=== PATIENT | female | born 1985 | race Caucasian/White ===

== ENCOUNTER 2023-06-01 10:25 | Emergency (ER) | payer MEDICAID ==
[~2023-06-01] VITALS: Ht 172.7 cm; Wt 113.4 kg
[2023-06-01] MEDS: MAG HYDROX/AL HYDROX/SIMETH 30 ML UDC PO ONE (11:48)
[2023-06-01] MEDS: LIDOCAINE VISCOUS 2% UD 15 ML UDC MM ONE (11:50)
[2023-06-01] MEDS ORDERED: PANTOPRAZOLE 40 MG VIAL ONE (11:52)
[2023-06-01] MEDS ORDERED: ONDANSETRON HCL/PF 4 MG/2 ML VIAL ONE (11:52)
[2023-06-01] MEDS ORDERED: MAG HYDROX/AL HYDROX/SIMETH 30 ML UDC ONE (11:53)
[2023-06-01] MEDS ORDERED: LIDOCAINE VISCOUS 2% UD 15 ML UDC ONE (11:53)
[2023-06-01 12:01] LABS: BASOPHILS # (AUTO) 0.1 K/uL (0.0-0.2); BASOPHILS % (AUTO) 0.9 % (0.0-2.0); EOSINOPHILS # (AUTO) 0.3 K/uL (0.0-0.7); EOSINOPHILS % (AUTO) 3.4 % (0.0-6.0); HEMATOCRIT 38 % (33-45); HEMOGLOBIN 12.5 g/dL (11.5-14.8); LYMPHOCYTES % (AUTO) 23.9 % (20.0-44.0); MEAN CORPUSCULAR HEMOGLOBIN 31 PG (26.0-33.0); MEAN CORPUSCULAR HGB CONC 33 g/dl (31.0-36.0); MEAN CORPUSCULAR VOLUME 94 fL (82-100); MONOCYTES # (AUTO) 0.6 K/uL (0.1-1.30); MONOCYTES % (AUTO) 6.5 % (2.0-12.0); NEUTROPHILS # (AUTO) 5.5 K/uL (1.8-8.9); NEUTROPHILS % (AUTO) 65.3 % (43.0-81.0); PLATELET COUNT (AUTO) 359 K/uL (150-450); RED BLOOD CELL COUNT(AUTO) 4.01 MIL/uL (4.0-5.2); RED CELL DISTRIBUTION WIDTH 14.7 % (11.5-15.0); WHITE BLOOD COUNT (AUTO) 8.5 K/uL (4.3-11.0)
[2023-06-01] MEDS: ONDANSETRON HCL/PF 4 MG/2 ML VIAL IVP ONE (12:01)
[2023-06-01] MEDS: PANTOPRAZOLE 40 MG VIAL IV ONE (12:05)
[2023-06-01 12:07] LABS: APPEARANCE,URINE CLEAR (CLEAR); BILIRUBIN,URINE NEGATIVE (NEGATIVE); BLOOD, URINE NEGATIVE Ery/uL (NEGATIVE); COLOR,URINE YELLOW (YELLOW); KETONES,URINE NEGATIVE (NEGATIVE); LEUKOCYTE ESTERASE ,URINE NEGATIVE (NEGATIVE); NITRITE, URINE NEGATIVE (NEGATIVE); PH,URINE 5.5 (5.0-8.0); PROTEIN,URINE NEGATIVE (NEGATIVE); UGLUCOSE NEGATIVE (NEGATIVE); UROBILINOGEN,URINE 0.2 EU/dL (0.2)
[2023-06-01 12:07] LABS: CALCIUM, SERUM 9.1 mg/dL (8.5-10.1); CARBON DIOXIDE 28 mmol/L (21-32); CHLORIDE 101 mmol/L (98-107); CREATININE 0.6 mg/dL (0.6-1.3); GLUCOSE 88 mg/dL (74-106); POTASSIUM 3.6 mmol/L (3.5-5.1); SODIUM SERUM 139 mmol/L (136-145); UREA NITROGEN, BLOOD 13 mg/dL (7-18)
[2023-06-01 12:09] LABS: PREGNANCY TEST URINE QUAL NEGATIVE (NEGATIVE)
[2023-06-01] MEDS: IV NS 0.9% 1,000 ML BAG IV ONE (12:10)
[2023-06-01 12:21] LABS: ALANINE AMINOTRANSFERASE 90 U/L (12-78); ALBUMIN 3.4 g/dL (3.4-5.0); ALKALINE PHOSPHATASE 91 U/L (46-116); ASPARTATE AMINOTRANSFERASE 67 U/L (15-37); BILIRUBIN,DIRECT 0.1 mg/dL (0.0-0.2); BILIRUBIN,TOTAL 0.2 mg/dL (0.2-1.0); LIPASE 29 U/L (16-77); TOTAL PROTEIN, SERUM 7.3 g/dL (6.4-8.2)
[2023-06-01] MEDS ORDERED: CT SWABBABLE VALVE TRANS SET 1 EA INFUS.SET MC ONE (12:25)
[2023-06-01] MEDS ORDERED: IOHEXOL-350 100 ML VIAL IV ONE (12:25)
[2023-06-01] MEDS ORDERED: IV NS 0.9% 250 ML IV ONE (12:26)
[2023-06-01] MEDS ORDERED: FAMO-131 PO (14:00)
[2023-06-01] MEDS ORDERED: ONDA4TAB5 PO (14:00)
[2023-06-01] MEDS ORDERED: LIDO30AD10 TP (14:01)
[2023-06-01 14:21] VITALS: BP 122/72; TEMP 98.1; O2SAT 100
== END 2023-06-01 14:25 ==
LOC: ER 10:25
DX: M54.6 Pain in thoracic spine (principal); R60.9 Edema, unspecified; R10.13 Epigastric pain; F41.9 Anxiety disorder, unspecified; R11.2 Nausea with vomiting, unspecified; Z88.5 Allergy status to narcotic agent; Z88.8 Allergy status to other drugs, medicaments and biological substances
CPT/HCPCS: 99285; 93970; 96374; 71275; 76705; 71045; 96361; 96375; 93005; 85025; 80048; 83690; 80076; 84703; 81003; 36415; 84484; J2405; J7030; J7050; C9113; Q9967